=== PATIENT | male | born 1940 | race African-American/Black ===

== ENCOUNTER 2019-01-26 08:30 | Emergency (ER) | payer SELFPAY ==
[~2019-01-26] VITALS: Ht 170.2 cm; Wt 72.0 kg
[2019-01-26] MEDS ORDERED: FLUORESCEIN SODIUM 1MG/STRIP LEFTEYE ONE (09:30)
[2019-01-26] MEDS ORDERED: ACETAMINOPHEN 325MG TABLET PO ONE (09:45)
[2019-01-26 10:29] VITALS: BP 130/85
== END 2019-01-26 10:46 | disposition home or self-care (01) ==
LOC: ER 08:30 → EDBD 08:30 → ER 10:46
DX: H57.12 Ocular pain, left eye (principal); I69.351 Hemiplegia and hemiparesis following cerebral infarction affecting right dominant side; Z98.890 Other specified postprocedural states
CPT/HCPCS: 99283